=== PATIENT | female | born 1955 | race Caucasian/White ===

== ENCOUNTER 2016-08-25 11:11 | Day surgery (SDC) | payer OTHER ==
[2016-08-25 12:58] VITALS: BMI 27.3
[2016-08-25] MEDS ORDERED: PROPOFOL 20 ML ONE (13:43)
[2016-08-25 14:22] VITALS: TEMP 97.5
[2016-08-25 14:39] VITALS: BP 110/69
[2016-08-25 15:25] VITALS: PULSE 62
== END 2016-08-25 15:25 | disposition home or self-care (01) ==
LOC: JASU-ENDO 11:11
PROVIDERS: ATTEND Internal Medicine Gastroenterology
PROC: 0DB68ZX Excision of Stomach, Via Natural or Artificial Opening Endoscopic, Diagnostic (ICD-10-PCS; 2016-08-25)
PROC: 0DB58ZX Excision of Esophagus, Via Natural or Artificial Opening Endoscopic, Diagnostic (ICD-10-PCS; 2016-08-25)
PROC: 0DB98ZX Excision of Duodenum, Via Natural or Artificial Opening Endoscopic, Diagnostic (ICD-10-PCS; principal; 2016-08-25 12:00)
DX: K31.89 Other diseases of stomach and duodenum (principal); R10.13 Epigastric pain
CPT/HCPCS: 88305-TC; 88342-TC

== ENCOUNTER 2016-09-01 08:23 | Day surgery (SDC) | payer OTHER ==
[2016-08-31 13:54] VITALS: BMI 28.1
[2016-09-01] MEDS ORDERED: PROPOFOL 20 ML ONE (11:17)
[2016-09-01 11:53] VITALS: TEMP 97.6
[2016-09-01 13:08] VITALS: BP 123/66; PULSE 72
== END 2016-09-01 13:08 | disposition home or self-care (01) ==
LOC: JASU-ENDO 08:23
PROVIDERS: ATTEND Internal Medicine Gastroenterology
PROC: 0DJD8ZZ Inspection of Lower Intestinal Tract, Via Natural or Artificial Opening Endoscopic (ICD-10-PCS; principal; 2016-09-01 10:00)
DX: Z86.010 Personal history of colon polyps (principal); K57.30 Diverticulosis of large intestine without perforation or abscess without bleeding

== ENCOUNTER 2022-04-02 04:29 | Day surgery (SDC) | payer OTHER ==
[2022-04-01 15:59] VITALS: BMI 30.2
[2022-04-02 12:31] VITALS: TEMP 97.8
[2022-04-02 12:41] VITALS: RESP 16
[2022-04-02 13:33] VITALS: BP 131/64; PULSE 66
== END 2022-04-02 13:25 | disposition home or self-care (01) ==
LOC: JASU-ENDO 04:29
PROVIDERS: ATTEND Internal Medicine Gastroenterology
PROC: 0DBL8ZX Excision of Transverse Colon, Via Natural or Artificial Opening Endoscopic, Diagnostic (ICD-10-PCS; principal; 2022-04-02 11:15)
DX: Z12.11 Encounter for screening for malignant neoplasm of colon (principal); D12.3 Benign neoplasm of transverse colon; K57.30 Diverticulosis of large intestine without perforation or abscess without bleeding; Z86.010 Personal history of colon polyps; I10 Essential (primary) hypertension
CPT/HCPCS: 82962; 88305-TC